=== PATIENT | female | born 1935 | race Caucasian/White ===

== ENCOUNTER → 2021-06-13 14:59 | Outpatient (REF) | payer MEDICARE, SELFPAY ==
--- NOTE | 2021-06-13 15:00 | CA_ITS ---
Transthoracic Echocardiogram Patient (Last, First, Middle): [address] Gender: Female Date of : 1935 Age: 86 Procedure Date: 06/13/2021 Procedure Type: Transthoracic Echocardiogram Location: OP Height: 165.1 cm Weight: 90.72 kg BSA: 1.98 m2 Heart Rate: bpm BP: 130 / 90 mmHg Optoelectronics Engineer: RESHMA Buckley MD: Fred De La Cruz MD Symptoms: R06.02 SOB Study Quality: Fair ECG Rhythm: Sinus Conclusions: - The left ventricular systolic function is normal. The visually estimated ejection fraction is between 60-65%. - [id number] concentric left ventricular hypertrophy. - The left atrium is moderately dilated. - There is mild mitral annular calcification. Findings Left Ventricle Normal left ventricular cavity size. The left ventricular systolic function is normal. The visually estimated ejection fraction is between 60-65%. There is no evidence of regional wall motion abnormalities. E/E prime ratio is between 8 and 15 consistent with indeterminate filling pressures. Evidence suggests grade I (mild) diastolic dysfunction. [id number] concentric left ventricular hypertrophy. Right Ventricle Normal right ventricular cavity size and systolic function. Atria The left atrium is moderately dilated. The right atrium is normal in size. Aortic Valve There is a normal trileaflet aortic valve. There is no aortic valve stenosis. There is no aortic valve regurgitation. Mitral Valve There is mild mitral annular calcification. There is trace mitral valve regurgitation. There is no mitral valve stenosis. Pulmonic Valve The pulmonic valve was not well visualized. Tricuspid Valve Normal tricuspid valve structure. There is mild tricuspid valve regurgitation. The pulmonary artery systolic pressure is normal. Great Vessels The aortic annulus, sinuses of valsalva, asc aorta, and aortic arch are normal in size. Venous The inferior vena cava is normal in size and collapses greater than 50% with inspiration. Pericardium/Pleural There is no evidence of pericardial effusion. Prior Study Comparison No significant change compared to prior study dated: 04/02/2020. Measurements 2D Linear Measurements IVSd: 1.04 0.6-0.9/0.6-1.0 cm LVIDd: 3.45 3.9-5.3/4.2-5.9 cm LVIDd Index: 1.74 2.4-3.2/2.2-3.1 cm/m2 LVIDs: 1.88 2.0-3.6 cm LVPWd: 1.00 0.7-1.1 cm Ao Root: 3.30 2.1-3.5 cm LA Diam: 2.70 2.7-3.8/3.0-4.0 cm LAIDs Index: 1.36 1.5-2.3 cm/m2 LV Mass: 129.38 67-162/88-224 g LV Mass Index: 65.34 43-95/49-115 g/m2 LVOT Diam: 2.20 3.0+(-)1.3 cm 2D Systolic Function EF 4C: 60.50 >55% EF 2C: 53.20 >55% EF BiP: 57.30 >55% Mitral Valve MV Pk E: 0.80 MV PK A: 0.91 MV Decel Time: 397.00 E/A: 0.90 E'Lateral: 5.11 E'Medial: 5.77 E/E' Med: 13.90 E/E' Lat: 15.70 PHT: 116.00 MVA PHT: 1.90 Decel [place]: 2.03 Aortic Valve AoV Pk Lazarus: 1.26 AoV Mn Lazarus: 0.95 AoV VTI: 0.26 AoV Pk Grad: 6.00 Aov Mn Grad: 4.00 LAUREL Cont.VTI: 3.55 LVOT LVOT Pk Lazarus: 1.13 LVOT Mn Lazarus: 0.79 LVOT VTI: 0.24 LVOT Pk Grad: 5.00 LVOT Mn Grad: 3.00 LVOT Diam: 2.20 LVOT Area: 3.80 Diastolic Function MV Pk E: 0.80 MV Pk A: 0.91 E/A: 0.90 E'Medial: 5.77 E/E' Med: 13.90 E' Laterial: 5.11 E/E' Lat: 15.70 Right Ventricle TAPSE (mm): 2.78 TVS' Lazarus: 12.80 Tricuspid Valve TR Pk Lazarus: 2.63 TR Pk Grad: 28.00 RA Press: 3.00 RVSP: 31.00 Great Vessels Aorta Ao Root-2D: 3.30 2.0-3.7 cm Ao Asc: 3.30 2.1-3.4 cm Ao Arch: 3.00 Updated in Other Vendor System with Status of Final Fred De La Cruz MD electronically signed on 06/14/2021 12:38:43 PM with status of Final
== END ==
LOC: HO.CARD 14:59
PROVIDERS: PCP Internal Medicine; Visit Provider Internal Medicine
DX: R06.02 Shortness of breath (principal)
CPT/HCPCS: 93306